=== PATIENT | female | born 1930 | race Caucasian/White ===

== ENCOUNTER 2017-09-13 13:13 | Outpatient (CLI) | payer MEDICARE ==
--- NOTE | 2017-09-13 16:00 | CT ---
CT FACIAL BONES WITHOUT CONTRAST: 09/13/17 Multiple axial tomograms obtained through facial bones without IV contrast. HISTORY: Palpable bump above left eyebrow x3 weeks. Markers placed at site of concern. Facial swelling. FINDINGS: Facial bones are intact. Slight nasal septal deviation to the right. Paranasal sinuses are well aerat ed and clear with no mucosal edema seen. Orbits appear unremarkable. Maxilla and mandible appear unre markable. In the left forehead region at the site of the marker, there is no evidence of subcutaneous mass or f luid collection. Slight skin prominence at this site is noted although no underlying abnormality iden tified. The frontal bone appears unremarkable. IMPRESSION: No evidence of acute process. POS: [facility]
== END 2017-09-13 13:14 | disposition home or self-care (01) ==
LOC: SCSCT 13:13
PROVIDERS: ATTEND Psychiatry & Neurology Neurology
DX: R22.0 Localized swelling, mass and lump, head (principal)
CPT/HCPCS: 70486

== ENCOUNTER 2018-03-20 11:01 | Outpatient (CLI) | payer MEDICARE ==
--- NOTE | 2018-03-20 12:42 | CT ---
CT BRAIN: HISTORY: Frontotemporal dementia. FINDINGS: Noncontrast-enhanced CT images of the brain obtained. The brain is unremarkable. No evidence of intracranial masses, hemorrhages, strokes, or contusions s een. Ventricles are of normal size. Some deep white matter ischemic changes seen. IMPRESSION: Unremarkable CT brain. POS: [facility]
== END 2018-03-20 11:02 | disposition home or self-care (01) ==
LOC: SCSCT 11:01
PROVIDERS: ATTEND Psychiatry & Neurology Neurology
DX: G31.09 Other frontotemporal neurocognitive disorder (principal)
CPT/HCPCS: 70450